=== PATIENT | male | born 1980 | race Caucasian/White ===

== ENCOUNTER 2018-02-19 15:56 | Inpatient (IN) | payer MEDICAID ==
[~2018-02-19] VITALS: Ht 182.9 cm; Wt 90.9 kg
[2018-02-19] MEDS ORDERED: naloxone 2mg/2ml inj IM STA (16:13)
[2018-02-19] MEDS ORDERED: normal saline 1000ML IV soln IVB ONE (16:20)
[2018-02-19] MEDS ORDERED: normal saline 1000ML IV soln IV ONE (16:20)
[2018-02-19] MEDS: naloxone 2mg/2ml inj ONE ×2 (16:32→16:33)
[2018-02-19 16:41] LABS: BASOPHILS # (AUTO) 0.1 X10'3 (0-0.2); BASOPHILS % (AUTO) 0.6 % (0-1); EOSINOPHILS # (AUTO) 0.2 X10'3 (0-0.9); EOSINOPHILS % (AUTO) 1.7 % (0-6); HEMATOCRIT 43.4 % (42.0-52.0); HEMOGLOBIN 14.6 g/dl (14.0-17.9); LYMPHOCYTES % (AUTO) 16.5 % (21-51); MEAN CORPUSCULAR HEMOGLOBIN 29.9 PG (27.0-31.0); MEAN CORPUSCULAR HGB CONC 33.7 % (33.0-36.5); MEAN CORPUSCULAR VOLUME 88.7 FL (78-98); MEAN PLATELET VOLUME 8.9 FL (7.4-10.4); MONOCYTES # (AUTO) 0.5 X10'3 (0-0.9); MONOCYTES % (AUTO) 3.9 % (2-12); NEUTROPHILS # (AUTO) 9.5 X10'3 (1.8-7.7); NEUTROPHILS % (AUTO) 77.3 % (42-75); PLATELET COUNT 234 X10'3 (140-440); RED BLOOD COUNT 4.89 X10'6 (4.70-6.10); RED CELL DISTRIBUTION WIDTH 13.5 % (11.5-14.5); WHITE BLOOD COUNT 12.2 X10'3 (4.5-11.0)
[2018-02-19 16:54] LABS: ALANINE AMINOTRANSFERASE 69 U/L (12-78); ALBUMIN 3.5 G/DL (3.4-5.0); ALBUMIN/GLOBULIN RATIO 0.9 (1.1-1.5); ALKALINE PHOSPHATASE 67 IU/L (46-116); ANION GAP 8 (8-16); ASPARTATE AMINO TRANSFERASE 36 U/L (10-37); BILIRUBIN,TOTAL 0.3 MG/DL (0.1-1.0); BLOOD UREA NITROGEN 15 MG/DL (7-18); BUN/CREATININE RATIO 13.4 (5.4-32.0); CALCIUM 8.8 MG/DL (8.5-10.1); CHLORIDE 105 MMOL/L (99-107); CREATININE 1.12 MG/DL (0.60-1.10); GLUCOSE 112 MG/DL (70-104); POTASSIUM 3.3 MMOL/L (3.5-5.1); SODIUM 140 MMOL/L (135-145); TOTAL CARBON DIOXIDE 26.8 MMOL/L (24-32); TOTAL PROTEIN 7.5 G/DL (6.4-8.2); eGFR 73 ML/MIN
[2018-02-19 17:03] LABS: CREATINE KINASE 218 U/L (39-308); TROPONIN I < 0.04 NG/ML (0.0-0.05)
[2018-02-19 17:07] LABS: CLARITY,URINE CLEAR (Clear); COLOR,URINE YELLOW (Yellow); GLUCOSE, URINE NEGATIVE (Neg); KETONES,URINE NEGATIVE (Neg); LEUKOCYTE ESTERASE ,URINE NEGATIVE (Neg); NITRITES, URINE NEGATIVE (Neg); OCCULT BLOOD,URINE NEGATIVE (Neg); PROTEIN,URINE NEGATIVE (Neg); UROBILINOGEN,URINE 0.2 E.U/dL (0.2-1.0)
[2018-02-19 17:08] LABS: UA COLLECTION TYPE STRAIGHT CATH
[2018-02-19 17:10] LABS: URINE AMPHETAMINE SCREEN POSITIVE (Neg); URINE BARBITUATE SCREEN NEGATIVE (Neg); URINE BENZODIAZEPINES SCREEN NEGATIVE (Neg); URINE CANNABINOID SCREEN NEGATIVE (Neg); URINE COCAINE SCREEN NEGATIVE (Neg); URINE METHADONE SCREEN NEGATIVE (Neg); URINE OPIATE SCREEN NEGATIVE (Neg); URINE PHENCYCLIDINE SCREEN NEGATIVE (Neg)
[2018-02-19 17:22] LABS: ACETAMINOPHEN < 2.0 UG/ML (10-30)
[2018-02-19 17:23] LABS: ETHANOL < 0.010 GM/DL (0.0-0.010)
[2018-02-19] MEDS ORDERED: CLON0.2T PO (18:57)
[2018-02-19] MEDS ORDERED: TRAZ-218 PO (18:57)
[2018-02-19] MEDS ORDERED: PRAM1TAB6 PO (18:57)
[2018-02-19] MEDS ORDERED: QUET100T33 PO (18:57)
[2018-02-19] MEDS ORDERED: IBUP-1985 PO (18:57)
[2018-02-19] MEDS ORDERED: TRAZ-219 PO (18:57)
[2018-02-19] MEDS ORDERED: DOCU250C88 PO (18:57)
[2018-02-19] MEDS ORDERED: CITA40TA17 PO (18:57)
[2018-02-19] MEDS ORDERED: LITH300C PO (18:57)
[2018-02-19] MEDS ORDERED: OMEP-50 PO (18:57)
[2018-02-19] MEDS ORDERED: BUPR300T7 PO (18:57)
[2018-02-19] MEDS ORDERED: bisacodyl 10mg suppository rectal RC PRN (19:20)
[2018-02-19] MEDS ORDERED: mag hydrox/Alum hydrox/simeth 30ml oral suspension PO PRN (19:20)
[2018-02-19] MEDS ORDERED: magnesium 4gm in 100ml NS 100 ML IV PRN (19:20)
[2018-02-19] MEDS ORDERED: magnesium 1gm/100ml D5W IVPB 100 ML IV PRN (19:20)
[2018-02-19] MEDS ORDERED: ondansetron/PF 4mg/2ml inj IV PRN (19:20)
[2018-02-19] MEDS ORDERED: potassium Cl 40MEQ/NS 500ml 500 ML IV PRN ×2 (19:20)
[2018-02-19] MEDS ORDERED: acetaminophen 650mg rectal suppository RC PRN (19:20)
[2018-02-19] MEDS ORDERED: potassium Cl 20 mEq SR tablet PO PRN ×2 (19:20)
[2018-02-19 22:00] VITALS: BP 96/61
[2018-02-19] MEDS: heparin, porcine 5000 units/ml vial SQ SCH (23:58)
[2018-02-20 02:04] VITALS: BP 119/68
[2018-02-20 06:00] VITALS: BP 120/75
[2018-02-20 07:34] LABS: BASOPHILS # (AUTO) 0.1 X10'3 (0-0.2); BASOPHILS % (AUTO) 0.7 % (0-1); EOSINOPHILS # (AUTO) 0.2 X10'3 (0-0.9); EOSINOPHILS % (AUTO) 2.4 % (0-6); HEMATOCRIT 42.4 % (42.0-52.0); LYMPHOCYTES # (AUTO) 2.4 X10'3 (1.1-4.8); LYMPHOCYTES % (AUTO) 24.5 % (21-51); MEAN CORPUSCULAR HEMOGLOBIN 29.9 PG (27.0-31.0); MEAN CORPUSCULAR HGB CONC 33.1 % (33.0-36.5); MEAN CORPUSCULAR VOLUME 90.2 FL (78-98); MEAN PLATELET VOLUME 9.1 FL (7.4-10.4); MONOCYTES # (AUTO) 0.6 X10'3 (0-0.9); MONOCYTES % (AUTO) 6.5 % (2-12); NEUTROPHILS # (AUTO) 6.4 X10'3 (1.8-7.7); NEUTROPHILS % (AUTO) 65.9 % (42-75); PLATELET COUNT 221 X10'3 (140-440); RED CELL DISTRIBUTION WIDTH 13.6 % (11.5-14.5); WHITE BLOOD COUNT 9.7 X10'3 (4.5-11.0)
[2018-02-20 07:48] LABS: ALANINE AMINOTRANSFERASE 65 U/L (12-78); ALBUMIN 3.1 G/DL (3.4-5.0); ALBUMIN/GLOBULIN RATIO 0.8 (1.1-1.5); ALKALINE PHOSPHATASE 62 IU/L (46-116); ANION GAP 7 (8-16); ASPARTATE AMINO TRANSFERASE 37 U/L (10-37); BILIRUBIN,TOTAL 0.4 MG/DL (0.1-1.0); BLOOD UREA NITROGEN 8 MG/DL (7-18); CALCIUM 8.2 MG/DL (8.5-10.1); CHLORIDE 110 MMOL/L (99-107); CREATININE 0.89 MG/DL (0.60-1.10); GLUCOSE 81 MG/DL (70-104); MAGNESIUM 2.1 MG/DL (1.5-2.4); POTASSIUM 3.9 MMOL/L (3.5-5.1); SODIUM 143 MMOL/L (135-145); TOTAL CARBON DIOXIDE 26.1 MMOL/L (24-32); TOTAL PROTEIN 6.9 G/DL (6.4-8.2); eGFR > 90 ML/MIN
[2018-02-20] MEDS ORDERED: K and/or MAG REPLACEMENT MC SCH (08:00)
[2018-02-20] MEDS: heparin, porcine 5000 units/ml vial SQ SCH (09:13)
[2018-02-20 10:00] VITALS: BP 143/91
== END 2018-02-20 15:25 | disposition home or self-care (01) | DRG 52 ==
LOC: ER 15:56 → ED HOLD 19:16 → ORTHO 4S 20:30
PROVIDERS: ADMIT Family Medicine; ATTEND Internal Medicine
DX: G92 Toxic encephalopathy (principal); N17.9 Acute kidney failure, unspecified; D72.829 Elevated white blood cell count, unspecified; E86.0 Dehydration; F15.90 Other stimulant use, unspecified, uncomplicated; G89.29 Other chronic pain; T50.905A Adverse effect of unspecified drugs, medicaments and biological substances, initial encounter; F32.9 Major depressive disorder, single episode, unspecified; R26.0 Ataxic gait; R47.81 Slurred speech; Z79.899 Other long term (current) drug therapy; Z71.51 Drug abuse counseling and surveillance of drug abuser; Y92.89 Other specified places as the place of occurrence of the external cause
CPT/HCPCS: 36415; 70450; 71045; 80053; 80305; 80320; 80329; 81003; 82140; 82550; 82948; 83605; 83735; 84443; 84484; 85025; 87040; 87070; 92616; 93005; 96361; 96372; 99291; J1644; J2310; J3480

== ENCOUNTER 2018-05-18 19:29 | Emergency (ER) | payer MEDICAID ==
[~2018-05-18] VITALS: Ht 182.9 cm; Wt 88.0 kg
[~2018-05-18 19:29] MED LIST: BUPR300T7 PO; CITA40TA17 PO; CLON0.2T PO; DOCU250C88 PO; IBUP-1985 PO; LITH300C PO; OMEP-50 PO; PRAM1TAB6 PO; QUET100T33 PO; TRAZ-218 PO; TRAZ-219 PO
[2018-05-18 19:37] VITALS: BP 151/92
[2018-05-18 20:14] LABS: BASOPHILS # (AUTO) 0.1 X10'3 (0-0.2); BASOPHILS % (AUTO) 0.7 % (0-1); EOSINOPHILS # (AUTO) 0.2 X10'3 (0-0.9); EOSINOPHILS % (AUTO) 1.8 % (0-6); HEMATOCRIT 45.6 % (42.0-52.0); HEMOGLOBIN 15.1 g/dl (14.0-17.9); LYMPHOCYTES # (AUTO) 3.2 X10'3 (1.1-4.8); LYMPHOCYTES % (AUTO) 31.7 % (21-51); MEAN CORPUSCULAR HEMOGLOBIN 29.6 PG (27.0-31.0); MEAN CORPUSCULAR HGB CONC 33.2 % (33.0-36.5); MEAN CORPUSCULAR VOLUME 89.3 FL (78-98); MEAN PLATELET VOLUME 8.6 FL (7.4-10.4); MONOCYTES # (AUTO) 0.6 X10'3 (0-0.9); MONOCYTES % (AUTO) 5.5 % (2-12); NEUTROPHILS # (AUTO) 6.1 X10'3 (1.8-7.7); NEUTROPHILS % (AUTO) 60.3 % (42-75); PLATELET COUNT 258 X10'3 (140-440); RED BLOOD COUNT 5.11 X10'6 (4.70-6.10); RED CELL DISTRIBUTION WIDTH 12.6 % (11.5-14.5); WHITE BLOOD COUNT 10.2 X10'3 (4.5-11.0)
[2018-05-18 20:29] LABS: PARTIAL THROMBOPLASTIN TIME 26 SECONDS (22-32); PROTHROMBIN TIME 10.3 SECONDS (9.0-12.0)
[2018-05-18 20:51] LABS: ALANINE AMINOTRANSFERASE 82 U/L (12-78); ALBUMIN 3.4 G/DL (3.4-5.0); ALBUMIN/GLOBULIN RATIO 0.8 (1.1-1.5); ALKALINE PHOSPHATASE 88 IU/L (46-116); ANION GAP 12 (8-16); ASPARTATE AMINO TRANSFERASE 39 U/L (10-37); BILIRUBIN,TOTAL 0.2 MG/DL (0.1-1.0); BLOOD UREA NITROGEN 21 MG/DL (7-18); CALCIUM 8.8 MG/DL (8.5-10.1); CHLORIDE 106 MMOL/L (99-107); GLUCOSE 122 MG/DL (70-104); POTASSIUM 3.6 MMOL/L (3.5-5.1); SODIUM 142 MMOL/L (135-145); TOTAL CARBON DIOXIDE 24.2 MMOL/L (24-32); TOTAL PROTEIN 7.8 G/DL (6.4-8.2); eGFR 83 ML/MIN
[2018-05-18] MEDS ORDERED: ketorolac trometh. 30mg/ml inj. IM ONE (22:50)
[2018-05-18] MEDS ORDERED: HYDROcodone/acetaminophen 10/325mg tab PO ONE (22:50)
== END 2018-05-18 23:44 | disposition home or self-care (01) ==
LOC: ER 19:29
DX: R07.89 Other chest pain (principal); R05 Cough; R09.81 Nasal congestion; F17.200 Nicotine dependence, unspecified, uncomplicated
CPT/HCPCS: 36415; 71045; 80053; 84484; 85025; 85610; 85730; 93005; 96372; 99284; J1885

== ENCOUNTER 2024-01-17 12:13 | Outpatient (CLI) | payer MEDICAID ==
[~2024-01-17 12:13] MED LIST changes: -DOCU250C88 PO; +DOCU250C89 PO; -OMEP-50 PO; +OMEP20CA16 PO; -QUET100T33 PO; +QUET100T34 PO; -TRAZ-218 PO; -TRAZ-219 PO; +TRAZ-251 PO; +TRAZ-256 PO
== END 2024-01-17 23:59 | disposition home or self-care (01) ==
LOC: RAD 12:13
PROVIDERS: ATTEND Nurse Practitioner Primary Care
DX: M25.571 Pain in right ankle and joints of right foot (principal)
CPT/HCPCS: 73610; 73620